=== PATIENT | female | born 1995 | race Two or more races ===

== ENCOUNTER 2018-04-30 21:59 | Emergency (ER) | payer BC ==
[~2018-04-30] VITALS: Ht 167.6 cm; Wt 92.1 kg
[2018-04-30] MEDS ORDERED: ONDANSETRON 2MG/ML, 2ML ONE (22:49)
[2018-04-30] MEDS ORDERED: SODIUM CHLORIDE FLUSH 10ML SYR IVF ONE (23:00)
[2018-04-30] MEDS ORDERED: ONDANSETRON 2MG/ML, 2ML IVPush ONE (23:00)
[2018-04-30] MEDS ORDERED: SODIUM CHLORIDE 0.9% 1,000ML IVBOLUS ONE (23:00)
[2018-04-30 23:04] LABS: ALBUMIN 4.5 g/dL (3.4-5.0); ANION GAP 9 mmol/L (5-15); CALCIUM 8.9 mg/dL (8.5-10.1); CHLORIDE 111 mmol/L (98-107); CREATININE 0.95 mg/dL (0.55-1.02)
[2018-04-30 23:34] VITALS: BP 113/69
[2018-04-30 23:46] LABS: HCG UR SG 1.032 (1.003-1.030)
== END 2018-05-01 00:20 | disposition home or self-care (01) ==
LOC: ED 23:23
DX: K52.9 Noninfective gastroenteritis and colitis, unspecified (principal); F32.9 Major depressive disorder, single episode, unspecified
CPT/HCPCS: 36415; 80048; 81025; 82040; 96361; 96374; 99284; J2405; J7030